=== PATIENT | female | born 1955 | race Caucasian/White ===

== ENCOUNTER 2017-07-09 13:05 | Emergency (ER) | payer OTHER ==
[2017-07-09 13:25] VITALS: BP 167/80
--- NOTE | 2017-07-09 13:55 | UC ---
Respiratory Complaint HPI - HPI Summary HPI Summary: 61 year old female with history of smoking. Cough for 12 days; sx started with sore throat, then head cold. Sore throat had resolved but then returned 3 days ago on right side; headaches at onset resolved then returned 4 days ago. CP worsens with cough and deep breaths, and with activity; pain radiates with cough to anterior right leg torso junction [ End ] - History of Current Complaint Chief Complaint: UCRespiratory Stated Complaint: THROAT COMPLAINT Time Seen by Provider: 07/09/17 13:30 Hx Obtained From: Patient ?: No Onset/Duration: Gradual Onset Timing: Constant Severity Initially: Mild Severity Currently: Moderate Associated Signs And Symptoms: Positive: URI, Nasal Congestion - Allergies/Home Medications Allergies/Adverse Reactions: Allergies Allergy/AdvReac Type Severity Reaction Status Date / Time Penicillins [PCN] Allergy Nausea And Verified 07/09/17 13:25 Vomiting Home Medications: Home Medications Acetaminophen TAB* [Tylenol TAB*] 1,300 mg PO Q8H PRN 07/09/17 [History Confirmed 07/09/17] Calcium With Magnesium 1 tab PO DAILY 07/09/17 [History] Cholecalciferol [Vitamin D3] 1,000 unit PO DAILY 07/09/17 [History Confirmed ] PMH/Surg Hx/FS Hx/Imm Hx Previously Healthy: Yes - Surgical History Surgical History: Yes Surgery Procedure, Year, and Place: tonsils, hysterectomy - Family History Known Family History: Negative: Cardiac Disease - Social History Occupation: Employed Full-time Alcohol Use: Daily Alcohol Amount: 2 Substance Use Type: None Smoking Status (MU): Heavy Every Day Tobacco Smoker Type: Cigarettes Amount Used/How Often: 1/2 ppd Cessation Counseling: Patient Advised to Stop Review of Systems ENT: Sore Throat, Ear Ache, Nasal Discharge, Sinus Congestion Respiratory: Cough Is Patient Immunocompromised?: No All Other Systems Reviewed And Are Negative: Yes Physical Exam Triage Information Reviewed: Yes Appearance: Well-Appearing, No Pain Distress, Well-Nourished, Other: - SMILING AND JOKING . no SI/HI Vital Signs: Initial Vital Signs Temp 100.3 F 07/09/17 13:09 Pulse 96 07/09/17 13:09 Resp 22 07/09/17 13:09 BP 167/80 07/09/17 13:09 Pulse Ox 96 07/09/17 13:09 Eye Exam: Normal ENT Exam: Normal Dental Exam: Normal Neck exam: Normal Neck: Positive: 1 Respiratory Exam: Normal Cardiovascular Exam: Normal Abdominal Exam: Normal Musculoskeletal Exam: Normal Neurological Exam: Normal Psychological Exam: Normal Skin Exam: Normal UC Diagnostic Evaluation - Laboratory O2 Sat by Pulse Oximetry: 96 Respiratory Course/Dx - Course Course Of Treatment: stop smoking, start doxy due to length of worsening illness. CXR shows NAD - Differential Dx/Diagnosis Differential Diagnosis/HQI/PQRI: Bronchitis, Lower Resp Infection, Sinusitis Provider Diagnoses: Bronchitis -- tobacco use disorder Discharge - Discharge Plan Condition: Good Disposition: HOME Prescriptions: Doxycycline Hyclate [[id number] [id number]] 100 mg PO BID #20 cap Patient Education Materials: Acute Bronchitis (ED) Referrals: Ida Yip NP [Nurse Practitioner] - 4 Days Additional Instructions: GOOD LUCK QUITTING SMOKING !
--- NOTE | 2017-07-09 14:24 | RAD ---
INDICATION: Cough COMPARISON: August 09, 2013 TECHNIQUE: PA and lateral dual-energy views were obtained. FINDINGS: Bones/Soft Tissues: There are no acute bony findings. Cardiomediastinal: The cardiomediastinal silhouette is normal. Lungs: There is hyperinflation. There is chronic interstitial change. Pleura: There are no pleural effusions. Other: None IMPRESSION: HYPERINFLATION WITH CHRONIC INTERSTITIAL CHANGE.
== END 2017-07-09 14:38 | disposition home or self-care (01) ==
LOC: UCCORT 13:05
DX: J40 Bronchitis, not specified as acute or chronic (principal); F17.210 Nicotine dependence, cigarettes, uncomplicated; Z88.0 Allergy status to penicillin
CPT/HCPCS: 71020; 99212; G0463

== ENCOUNTER 2018-02-03 07:23 | Emergency (ER) | payer OTHER ==
[2018-02-03 07:40] VITALS: BP 141/94
--- NOTE | 2018-02-03 07:59 | UC ---
Skin Complaint HPI - HPI Summary HPI Summary: She stepped on sharp prunning shiva last night. She has a Puncture wound in the arch of the right foot. There is pain with walking. No prior hx of mrsa, skin infections, DM. - History of Current Complaint Chief Complaint: UCTrauma Time Seen by Provider: 02/03/18 07:44 Stated Complaint: RIGHT FOOT INJURY Hx Obtained From: Patient Onset/Duration: Sudden Onset, Lasting Hours Skin Exposure Onset/Duration: Hours Ago Timing: Constant Onset Severity: Severe Current Severity: Severe Pain Intensity: 2 Location: Discrete, Foot (Right) Character: Pain Aggravating Factor(s): Touch Alleviating Factor(s): Other - rest. Associated Signs & Symptoms: Positive: Tenderness Related History: Trauma - Allergy/Home Medications Allergies/Adverse Reactions: Allergies Allergy/AdvReac Type Severity Reaction Status Date / Time Penicillins Allergy Intermediate Nausea And Verified 02/03/18 07:40 Vomiting Review of Systems Skin: Other - puncture wound. All Other Systems Reviewed And Are Negative: Yes PMH/Surg Hx/FS Hx/Imm Hx Previously Healthy: No - No Diabetes. Tetanus within the last 5 years. - Surgical History Surgical History: Yes Surgery Procedure, Year, and Place: tonsils, hysterectomy - Family History Known Family History: Negative: Cardiac Disease - Social History Occupation: Employed Part-time Alcohol Use: Daily Alcohol Amount: 2 Substance Use Type: None Smoking Status (MU): Heavy Every Day Tobacco Smoker Type: Cigarettes Amount Used/How Often: 1/2 ppd - Immunization History Most Recent Tetanus Shot: UTD Physical Exam Triage Information Reviewed: Yes Appearance: Well-Appearing, No Pain Distress, Well-Nourished Vital Signs: Initial Vital Signs Temp 98.5 F 02/03/18 07:34 Pulse 85 02/03/18 07:34 Resp 18 02/03/18 07:34 BP 141/94 02/03/18 07:34 Pulse Ox 100 02/03/18 07:34 Vital Signs Reviewed: Yes Eyes: Positive: Conjunctiva Clear ENT: Positive: Normal ENT inspection Neck: Positive: Supple. Negative: Nuchal Rigidity Respiratory: Positive: No respiratory distress, No accessory muscle use. Negative: Respiratory distress Cardiovascular: Positive: Pulses Normal Abdomen Description: Negative: Distended Musculoskeletal: Positive: ROM Intact, No Edema Neurological: Positive: Alert, Muscle Tone Normal. Negative: Fatigued Psychological: Positive: Age Appropriate Behavior Skin Exam: Other - right arch of foot 3-4 mm puncture wound. No surrounding redness. There is tenderness. Course/Dx - Course Course Of Treatment: We discussed wound care in general. Short course of pain meds and antibiotics. She agrees to return for any signs or concerns of infection. - Diagnoses Provider Diagnoses: puncture wound right foot. Discharge - Sign-Out/Discharge Documenting (check all that apply): Discharge/Admit/Transfer - Discharge Plan Condition: Good Disposition: HOME Prescriptions: Ciprofloxacin TAB* [Cipro 500 MG TAB*] 500 mg PO BID #10 tab traMADol TAB* [Ultram*] 50 mg PO Q6HR PRN #30 tab MDD 4 PRN Reason: Pain Patient Education Materials: Puncture Wound (ED) Forms: *Work Release Referrals: Pollo Adan MD [Primary Care Provider] - 2 Days Additional Instructions: Return for any signs of infection as we discussed. - Billing Disposition and Condition Condition: GOOD Disposition: HOME
== END 2018-02-03 08:07 | disposition home or self-care (01) ==
LOC: UCCORT 07:23
DX: Z88.0 Allergy status to penicillin (principal); F17.210 Nicotine dependence, cigarettes, uncomplicated; S91.331A Puncture wound without foreign body, right foot, initial encounter; W22.8XXA Striking against or struck by other objects, initial encounter; Y93.01 Activity, walking, marching and hiking; Y92.9 Unspecified place or not applicable
CPT/HCPCS: 99213; G0463